=== PATIENT | female | born 1960 | race Caucasian/White ===

== ENCOUNTER → 2020-11-22 | Outpatient (CLI) | payer MEDICARE, OTHER ==
[~2020-11-22] MED LIST: ANTIVERT 25MG T25 MG PO; ASPIRIN EC81 MG PO; ATORVASTATIN CA20 MG PO; BIAXIN 250MG T250 MG PO; BREO ELLIPTA 21 EACH INH; BUTALB-ACETAMI1 EAC1 PO; CLARITIN10 MG PO; COMBIVENT0.074 GM/I INH; HYDROXYZINE HCL10 MG PO; INCRUSE ELLI62.5 MCG INH; IPRAT-ALBUT 0.5-3 ML INH; IPRAT-ALBUT 0.5-3 ML NEB; LEVOFLOXACIN500 MG PO; LISINOPRIL10 MG PO; LOPRESSOR 25 MG25 MG PO; MEDROL4 MG PO; NORCO 5-325 TA1 EACH PO; OMNICEF 300 MG300 MG PO; PAROXETINE HCL10 MG PO; PREDNISONE20 MG PO; PROAIR HFA8.5 GM INH; SINGULAIR10 MG PO; SPIRIVA HANDIH18 MCG INH; SYMBICORT 160-1 INHA INH; TAB-A-VITE1 EACH PO; VALIUM 2 MG TAB2 MG PO; ZANTAC150 MG PO; ZOFRAN4 MG PO; [UNRECOGNIZED DRUG - OTHER] PO
== END ==
LOC: HEART 5 15:17
DX: J44.9 Chronic obstructive pulmonary disease, unspecified (principal); I20.9 Angina pectoris, unspecified
CPT/HCPCS: 71046

== ENCOUNTER → 2020-12-13 | Outpatient (CLI) | payer MEDICARE, OTHER | LOC: CT 12-03 13:30 | DX: I72.9 Aneurysm of unspecified site (principal); Z98.890 Other specified postprocedural states | CPT/HCPCS: 36415; 70496; 82565; Q9963 ==

== ENCOUNTER → 2021-04-11 | Outpatient (CLI) | payer MEDICARE, OTHER | LOC: CT 03-28 13:30 | DX: R14.0 Abdominal distension (gaseous) (principal); R10.9 Unspecified abdominal pain; R19.7 Diarrhea, unspecified; K76.89 Other specified diseases of liver | CPT/HCPCS: 36415; 82565; Q9967 ==

== ENCOUNTER → 2021-10-01 | Outpatient (CLI) | payer MEDICARE, OTHER | LOC: EXRD 09-04 11:30 | DX: M81.0 Age-related osteoporosis without current pathological fracture (principal); M85.852 Other specified disorders of bone density and structure, left thigh | CPT/HCPCS: 77080 ==

== ENCOUNTER → 2021-10-01 | Outpatient (CLI) | payer MEDICARE, OTHER | LOC: CT 09-11 13:30 | DX: G43.709 Chronic migraine without aura, not intractable, without status migrainosus (principal); R41.89 Other symptoms and signs involving cognitive functions and awareness; R56.9 Unspecified convulsions; R41.3 Other amnesia; Z98.890 Other specified postprocedural states | CPT/HCPCS: 70450 ==